=== PATIENT | female | born 1990 | race African-American/Black ===

== ENCOUNTER 2017-08-14 21:49 | Inpatient (IN) | payer OTHER, MEDICAID ==
[~2017-08-14 21:49] MED LIST: GLYCOPYRROLATE 1 MG/5 ML SYRINGE ONE; NEOSTIGMINE METHYLSULFATE 10 MG/10 ML VIAL ONE; ROCURONIUM BROMIDE INJ 50 MG/5 ML VIAL IV ONE; SUCCINYLCHOLINE CHLORIDE INJ 200 MG/10 ML VIAL ONE
[2017-08-14] MEDS ORDERED: METOCLOPRAMIDE HCL INJ/PF 10 MG/2 ML SDV IV ONE (22:22)
[2017-08-14] MEDS ORDERED: NORMAL SALINE 1000 ML 1,000 ML IV ONE ×2 (22:22→23:10)
[2017-08-14] MEDS ORDERED: FENTANYL CITRATE INJ/PF 100 MCG/2 ML AMPUL IV ONE (22:23)
--- NOTE | 2017-08-14 22:24 | ER Document Report ---
ED GI/ <ADDIE CORTEZ - Last Filed: 08/14/17 23:40> - General TRAVEL OUTSIDE OF THE [place] IN LAST 30 DAYS: No <JESSI GRESHAM - Last Filed: 08/15/17 05:04> - General Chief Complaint: Abdominal Pain Stated Complaint: STOMACH PAIN Time Seen by Provider: 08/14/17 22:15 Notes: Patient is a 27-year-old female comes emergency department for chief complaint of sharp mid to lower left abdominal pain that goes to her back, symptoms started suddenly prior to arrival, she vomited several times after the pain started. She denies fever or chills, had a normal bowel movement earlier tonight, denies history of the same. Denies history of kidney stones or ovarian cyst. Denies vaginal bleeding or discharge. Takes no medications, has had appendectomy and , denies any other medical history. On depo, had a negative test before it was started at the end of June. She states she spent the day out at the pool. (JESSI GRESHAM) - Related Data Allergies/Adverse Reactions: No Known Allergies Allergy (Unverified 08/14/17 21:56) Past Medical History - General Information source: Patient - Social History Smoking Status: Never Smoker Frequency of alcohol use: None Drug Abuse: None Lives with: Spouse/Significant other Family History: Reviewed & Not Pertinent Past Surgical History: Reports: Hx Appendectomy, Hx Section - Immunizations Hx Diphtheria, Pertussis, Tetanus Vaccination: Yes <JESSI GRESHAM - Last Filed: 08/15/17 05:04> Review of Systems - Review of Systems Constitutional: No symptoms reported EENT: No symptoms reported Cardiovascular: No symptoms reported Respiratory: No symptoms reported Gastrointestinal: See HPI Genitourinary: No symptoms reported Female Genitourinary: No symptoms reported Musculoskeletal: No symptoms reported Skin: No symptoms reported Hematologic/Lymphatic: No symptoms reported Neurological/Psychological: No symptoms reported <JESSI GRESHAM - Last Filed: 08/15/17 05:04> Physical Exam <ADDIE CORTEZ - Last Filed: 08/14/17 23:40> <JESSI GRESHAM - Last Filed: 08/15/17 05:04> - Vital signs Vitals: Temp Pulse Resp BP Pulse Ox 98.6 F 82 22 H 97/57 L 100 08/14/17 22:01 08/14/17 22:01 08/14/17 22:01 08/14/17 22:01 08/14/17 22:01 - Notes Notes: GENERAL: Alert, patient appears to be in pain, mild distress, answers questions appropriately HEAD: Normocephalic, atraumatic. EYES: Pupils equal, round, and reactive to light. Extraocular movements intact. ENT: Oral mucosa moist, tongue midline. [Nares patent, no nasal septal hematoma , TM's intact.] NECK: Full range of motion. Supple. Trachea midline. LUNGS: Clear to auscultation bilaterally, no wheezes, rales, or rhonchi. No respiratory distress. HEART: Regular rate and rhythm. No murmur ABDOMEN: difficult to evaluate patient's abdomen, generalized tenderness but there is some guarding in the left lower abdomen/pelvis EXTREMITIES: Moves all 4 extremities spontaneously. No edema, normal radial and dorsalis pedis pulses bilaterally. No cyanosis. BACK: no cervical, thoracic, lumbar midline tenderness. No saddle anesthesia, normal distal neurovascular exam. NEUROLOGICAL: Alert and oriented x3. Normal speech. [cranial nerves II through XII grossly intact]. PSYCH: very anxious SKIN: Warm, dry, normal turgor. No rashes or lesions noted. (JESSI GRESHAM) Course - Laboratory Result Diagrams: 08/14/17 22:25 08/14/17 22:25 <ADDIE CORTEZ - Last Filed: 08/14/17 23:40> - Laboratory Result Diagrams: 08/14/17 22:25 08/14/17 22:25 <JESSI GRESHAM - Last Filed: 08/15/17 05:04> - Re-evaluation Re-evalutation: 08/14/17 23:40 Jessi Gresham, physician marketing assistant, has been come see the patient because she has severe abdominal pain and had a positive FAST exam. Patient also just suddenly started, little hypotensive. Recheck the patient's blood pressure to start to come back up and is now 110/73 but she has had 2 consecutive blood pressures with systolically in the 80s. I did do a quick bedside FAST exam and she appears to have a small amount of free fluid in Morison's pouch on the right side. She does have a lot of pain over her abdomen seems uncomfortable. She does have a positive test was just came back. I have immediately called Dr. Leung, OB doctor, who immediately came down to evaluate the patient. He requested we have ultrasound do a quick bedside transvaginal ultrasound to confirm ectopic . (ADDIE CORTEZ) Patient fluttering her eyelids, states she is in a lot of pain, slightly uncooperative but she does seem to be very uncomfortable. Blood pressure is borderline, no tachycardia, giving IV fluids, pain medication, workup pending. CBC unremarkable, chemistry unremarkable, test is positive. Concern for ectopic with rupture. Immediately asked Dr. Cortez to perform a FAST exam at bedside. Appears to show a small amount of free fluid in Morison' s pouch. Blood pressure dropped into the 80s systolic but this responded immediately to IV fluids. Will contact PROBATION WORKER immediately. Placing second IV, giving additional IV fluids, performing type and screen. Patient has not eaten since this morning. 08/14/17 23:[address] Leung. He came and evaluated the patient at bedside. He states he believes this is an ectopic with rupture, would like to confirm this with transvaginal ultrasound because patient is very stable at this time, requests 2 units of transfusion blood products and OR preparation. I called and asked ultrasound to perform bedside transvaginal exam. Patient will be moved closer to the nursing station. Patient is ready to be taken to the OR. Dr. Avila called and spoke with me, confirms that this appears to be a ruptured ectopic , questionable intrauterine as well. HCG is elevated in the thousands. I called Dr. Leung to confirm that he had seen these results. He is ready for patient in the OR. Patient will be taken there now. (JESSI GRESHAM) - Vital Signs Vital signs: Temp Pulse Resp BP Pulse Ox 97.1 F 53 L 20 99/50 L 98 08/15/17 03:48 08/15/17 03:48 08/15/17 03:48 08/15/17 03:48 08/15/17 03:48 - Laboratory Laboratory results interpreted by me: 08/14/17 08/14/17 08/14/17 22:25 22:25 22:25 Sodium 146.6 H Chloride 112 H Glucose 134 H Serum HCG, Qual POSITIVE H Beta HCG, Quant 9566.80 H Crossmatch 08/14/17 23:20 Sodium Chloride Glucose Serum HCG, Qual Beta HCG, Quant Crossmatch See Detail Critical Care Note <ADDIE CORTEZ - Last Filed: 08/14/17 23:40> - Critical Care Note Total time excluding time spent on procedures (mins): 35 - Ruptured ectopic <JESSI GRESHAM - Last Filed: 08/15/17 05:04> - Critical Care Note Comments: Please allow 35 minutes of critical care time for evaluation and treatment of patient with ruptured ectopic , multiple re-evaluations, hypotension requiring IV fluid resuscitation, consultation with PROBATION WORKER, discussion with radiologist, admission to the operating room. (JESSI GRESHAM) Discharge <ADDIE CORTEZ - Last Filed: 08/14/17 23:40> - Discharge Admitting Provider: [facility] Admitted: OR <JESSI GRESHAM - Last Filed: 08/15/17 05:04> - Discharge Clinical Impression: Ruptured ectopic , Left lower quadrant pain Hypotension Qualifiers: Hypotension type: unspecified hypotension type Qualified Code(s): I95.9 - Hypotension, unspecified Vomiting Qualifiers: Vomiting type: unspecified Vomiting Intractability: non-intractable Nausea presence: with nausea Qualified Code(s): R11.2 - Nausea with vomiting, unspecified Condition: Critical Disposition: ADMITTED INPATIENT
[2017-08-14 22:39] LABS: ABSOLUTE BASOPHILS # (AUTO) 0.1 10^3/uL (0.0-0.2); ABSOLUTE EOSINOPHILS # (AUTO) 0.1 10^3/uL (0.0-0.6); ABSOLUTE LYMPHOCYTES (AUTO) 3.1 10^3/uL (0.5-4.7); ABSOLUTE MONOCYTES (AUTO) 0.4 10^3/uL (0.1-1.4); ABSOLUTE NEUT (AUTO) 3.6 10^3/uL (1.7-8.2); BASOPHILS % (AUTO) 0.7 % (0-2); EOSINOPHILS % (AUTO) 1.3 % (0-6); HEMATOCRIT 39.1 % (36.0-47.0); LYMPHOCYTES % (AUTO) 42.8 % (13-45); MEAN CORPUSCULAR HEMOGLOBIN 30.2 pg (27.0-33.4); MEAN CORPUSCULAR HGB CONC 33.3 g/dL (32.0-36.0); MEAN CORPUSCULAR VOLUME 91 fl (80-97); MONOCYTES % (AUTO) 5.8 % (3-13); PLATELET COUNT 267 10^3/uL (150-450); RED BLOOD COUNT 4.31 10^6/uL (3.72-5.28); RED CELL DISTRIBUTION WIDTH 13.6 % (11.5-14.0); SEGMENTED NEUTROPHILS % (AUTO) 49.4 % (42-78); TOTAL CELLS COUNTED % (AUTO) 100 %; WHITE BLOOD COUNT 7.3 10^3/uL (4.0-10.5)
[2017-08-14 23:01] LABS: ALANINE AMINOTRANSFERASE 17 U/L (9-52); ALBUMIN 4.1 g/dL (3.5-5.0); ALKALINE PHOSPHATASE 86 U/L (38-126); ANION GAP 11 (5-19); ASPARTATE AMINO TRANSFERASE 22 U/L (14-36); BILIRUBIN,DIRECT 0.3 mg/dL (0.0-0.4); BILIRUBIN,TOTAL 0.5 mg/dL (0.2-1.3); BLOOD UREA NITROGEN 12 mg/dL (7-20); CALCIUM 9.1 mg/dL (8.4-10.2); CARBON DIOXIDE 24 mmol/L (22-30); CHLORIDE 112 mmol/L (98-107); GLUCOSE 134 mg/dL (75-110); LIPASE 79.8 U/L (23-300); SODIUM 146.6 mmol/L (137-145); TOTAL PROTEIN 7.4 g/dL (6.3-8.2)
[2017-08-15] MEDS ORDERED: PROMETHAZINE HCL INJ 25 MG/1 ML VIAL IV PRN ×2 (00:21→01:07)
[2017-08-15] MEDS ORDERED: RINGERS SOLUTION,LACTATED 1,000 ML IV PRN (00:21)
[2017-08-15] MEDS ORDERED: ACETAMINOPHEN 1,000 MG/100 ML RTUPB IV PRN (00:21)
[2017-08-15] MEDS ORDERED: ACETAMINOPHEN 325 MG TABLET PO PRN (00:21)
[2017-08-15] MEDS ORDERED: OXYCODONE-ACETAMINOPHEN 5-325 MG TABLET PO PRN ×2 (00:21)
[2017-08-15] MEDS ORDERED: HYDROMORPHONE HCL INJ/PF 2 MG/ML AMPULE IV PRN (00:21)
[2017-08-15] MEDS ORDERED: SIMETHICONE 80 MG TAB.CHEW PO PRN (00:21)
--- NOTE | 2017-08-15 00:26 | RADIOLOGY REPORT (SQ) ---
EXAM DESCRIPTION: US TRANSVAGINAL COMPLETED DATE/TME: 08/14/2017 23:21 CLINICAL HISTORY: 27 years, Female, severe LLQ pain, +HCG, ?ruptured ectopic COMPARISON: None. TECHNIQUE: Transvaginal LIMITATIONS: None. FINDINGS: No definite intrauterine . Indeterminate cystic fluid collection within the endometrial cavity measures 1.5 x 1.2 cm; no yolk sac, no pole, no cardiac activity. If this sac were to represent a viable gestational sac, it would correspond with a gestational age of six weeks and two days. Moderate heterogeneous material in the anterior and posterior cul-de-sac and right ovarian fossa; differential diagnosis includes hemorrhagic clot. IMPRESSION: Possible ruptured ectopic gestation. Immediate Surgical referral advised.
[2017-08-15] MEDS ORDERED: FENTANYL CITRATE INJ/PF 250 MCG/5 ML AMPULE ONE (00:38)
[2017-08-15] MEDS ORDERED: MIDAZOLAM 2 MG/2 ML INJ ONE (00:38)
[2017-08-15] MEDS ORDERED: PROPOFOL INJ 200 MG/20 ML VIAL IV ONE (00:39)
[2017-08-15] MEDS ORDERED: ACETAMINOPHEN 1,000 MG/100 ML RTUPB IV ONE (00:39)
[2017-08-15] MEDS ORDERED: CEFAZOLIN INJ 1 GM VIAL ONE (00:55)
[2017-08-15] MEDS ORDERED: FENTANYL CITRATE INJ/PF 100 MCG/2 ML AMPUL IV PRN ×3 (01:07)
[2017-08-15] MEDS ORDERED: MORPHINE SULFATE 10 MG/ML INJ IV PRN (01:07)
[2017-08-15] MEDS ORDERED: MEPERIDINE HCL/PF INJ 25 MG/1 ML DISP.SYRIN IV PRN (01:07)
[2017-08-15] MEDS ORDERED: DIPHENHYDRAMINE HCL 50 MG/ML VIAL IV PRN (01:07)
--- NOTE | 2017-08-15 02:01 | Operative Report ---
Operative Report DATE OF SURGERY: 08/15/17 PREOPERATIVE DIAGNOSIS: Ruptured ectopic POSTOPERATIVE DIAGNOSIS: Ruptured left ectopic right by the uterine cornu OPERATION: Minilaparotomy with left salpingectomy. Also the left cornu was oversewn to control bleeding. SURGEON: UVALDO BUSBY ANESTHESIA: GA TISSUE REMOVED OR ALTERED: Left fallopian tube COMPLICATIONS: None ESTIMATED BLOOD LOSS: 250 cc INTRAOPERATIVE FINDINGS: Ruptured left fallopian tube right at the uterine cornu. Large amount of blood clot in front and behind the uterus. Normal- appearing ovaries normal right fallopian tube small uterus PROCEDURE: Patient was taken the OR and placed in supine position. General anesthesia was induced. A Benedict was placed for drainage of the bladder. Her abdomen was prepared and draped in a sterile fashion. Incision was made on her old C- section scar and carried down the level of fascia which was nicked in midline. The fascial incision was extended bilaterally using curved [place] scissors. The fascia was off the rectus muscles using sharp and blunt dissection. The rectus muscles were midline and peritoneum was entered without incident. Peritoneal incision was extended superiorly and inferiorly taking care not to injure bladder. The clot was quickly evacuated out of the posterior and anterior cul-de-sac allowing visualization of the fallopian tubes. The right tube and ovary were inspected and found to be intact. The left tube was found to be bleeding briskly just next to the uterine cornu. The the ovary appeared normal. The area that was bleeding was grasped with a Sheri clamp and elevated which controlled the bleeding. Using the LigaSure device the ureter the fallopian tube was removed with successive bites. The fallopian tube was ruptured at the uterine cornu which made salvaging the left fallopian tube problematic. Some bleeding still at the uterine cornu was made hemostatic by oversewing the area with 2 oh chromics in interrupted fashion. The remainder of the clot in the abdomen was evacuated. The pelvis was irrigated and suctioned free of fluid. The rectus muscles were brought together in the midline with 2 interrupted sutures of 2-0 chromic. The sub- fascial tissues were inspected for bleeding. The fascia was then closed with a running 0 Vicryl in 2 segments. The wound was irrigated. Radha's layer was brought together with 2-0 plain gut stitch and skin closed with a running subcuticular 4-0 undyed Vicryl stitch. She was extubated in the OR and taken recovery room in stable condition.
[2017-08-15] MEDS ORDERED: ONDANSETRON 4 MG TAB.RAPDIS ONE (02:27)
[2017-08-15] MEDS: FENTANYL CITRATE INJ/PF 100 MCG/2 ML AMPUL ONE ×2 (02:41→02:50)
[2017-08-15] MEDS ORDERED: CEFAZOLIN 1 GM/D5W RTU 1 GM/50 ML RTUPB IV SCH ×2 (03:00→06:00)
[2017-08-15] MEDS: NORMAL SALINE 250 ML IV PRN ×8 (06:31→06:35)
[2017-08-15] MEDS: KETOROLAC TROMETHAMINE INJ/PF 30 MG/1 ML SDV IV SCH ×3 (06:33→17:22)
[2017-08-15] MEDS: IBUPROFEN 800 MG TABLET PO SCH ×4 (07:41→23:12)
[2017-08-15] MEDS: DOCUSATE SODIUM 100 MG CAPSULE PO SCH ×2 (09:49→17:26)
[2017-08-16] MEDS: IBUPROFEN 800 MG TABLET PO SCH (05:46)
[2017-08-16 07:32] LABS: HEMATOCRIT 21.7 % (36.0-47.0); MEAN CORPUSCULAR HEMOGLOBIN 30.1 pg (27.0-33.4); MEAN CORPUSCULAR HGB CONC 33.5 g/dL (32.0-36.0); MEAN CORPUSCULAR VOLUME 90 fl (80-97); PLATELET COUNT 146 10^3/uL (150-450); RED BLOOD COUNT 2.42 10^6/uL (3.72-5.28); RED CELL DISTRIBUTION WIDTH 13.4 % (11.5-14.0); WHITE BLOOD COUNT 8.7 10^3/uL (4.0-10.5)
[2017-08-16 07:35] LABS: HEMOGLOBIN 7.3 g/dL (12.0-15.5)
[2017-08-16] MEDS: DOCUSATE SODIUM 100 MG CAPSULE PO SCH (10:09)
--- NOTE | 2017-08-16 11:07 | PDOC PROGRESS REPORT ---
Subjective Progress Note for:: 08/16/17 Subjective:: + flatus, no BM, good pain control. tolerating po intake, no n/v/fevers/chills , ambulating without difficulty Reason For Visit: RUPTURED ECTOPIC , LEFT LOWER QUADRANT Physical Exam - Physical Exam Vital Signs: Temp Pulse Resp BP Pulse Ox 99.0 F 88 20 110/56 L 98 08/16/17 07:27 08/16/17 07:27 08/16/17 07:27 08/16/17 07:27 08/16/17 07:27 Intake & Output 08/15/17 08/16/17 08/17/17 06:59 06:59 06:59 Intake Total 1600 1150 Output Total 1410 750 Balance 190 400 General appearance: PRESENT: no acute distress, cooperative Head exam: PRESENT: atraumatic Respiratory exam: PRESENT: clear to auscultation jonas, symmetrical, unlabored Cardiovascular exam: PRESENT: RRR, +S1, +S2 Vascular exam: PRESENT: normal capillary refill GI/Abdominal exam: PRESENT: normal bowel sounds, soft, tenderness. ABSENT: distended Rectal exam: PRESENT: deferred Extremities exam: ABSENT: calf tenderness, +1 edema Musculoskeletal exam: PRESENT: ambulatory Neurological exam: PRESENT: alert, awake, oriented to person, oriented to place , oriented to time, oriented to situation, CN II-XII grossly intact. ABSENT: motor sensory deficit Psychiatric exam: PRESENT: appropriate affect, normal mood. ABSENT: homicidal ideation, suicidal ideation Result Laboratory Results: 08/16/17 06:30 08/16/17 06:30 WBC 8.7 RBC 2.42 L Hgb 7.3 L D Hct 21.7 L MCV 90 MCH 30.1 MCHC 33.5 RDW 13.4 Plt Count 146 L Impressions: Transvaginal US 08/14/17 23:21 IMPRESSION: Possible ruptured ectopic gestation. Immediate Surgical referral advised. Status: Imported from PACS Assessment & Plan - Diagnosis (1) Ruptured ectopic Is this a current diagnosis for this admission?: Yes Plan: Rupture left ectopic at left urterine cornua. S/p Mini Lap and removal of left tube. See op report. Meets criteria for discharge (2) Acute blood loss anemia Is this a current diagnosis for this admission?: Yes Plan: EBL for surgery 250ml but considering presentation and need for mini lap and description of intraop findings suspect that total EBL for surgery was much higher. Pt is stable and doing well. TOlerating po intake, + flatus and good pain control. No n/v. Will discharge to home with iron supplementation and have pt f/u in office with Dr. Leung in 1 wks. - Time Time Spent with patient: 15-24 minutes Medications reviewed and adjusted accordingly: Yes Anticipated discharge: Home Within: within 24 hours - Inpatient Certification Based on my medical assessment, after consideration of the patient's comorbidities, presenting symptoms, or acuity I expect that the services needed warrant INPATIENT care.: No I certify that my determination is in accordance with my understanding of Medicare's requirements for reasonable and necessary INPATIENT services [42 CFR 412.3e].: No Post Hospital Care: D/C [facility] Documentation - Plan Summary Plan Summary: Meets criteria for discharge
--- NOTE | 2017-08-16 11:25 | PDOC DISCHARGE SUMMARY ---
General - Admit/Disc Date/PCP Admission Date/Primary Care Provider: 08/14/17 23:59 RAMAKRISHNA BAILON MD Discharge Date: 08/16/17 - Discharge Diagnosis (1) Ruptured ectopic Is this a current diagnosis for this admission?: Yes Summary: presented for LLQ pain and US revealed bleeding and ruptured ectopic . Pt underwent Urgent Mini Lap with left salpingectomy and evacuation of blood clot and ectopic (2) Acute blood loss anemia Is this a current diagnosis for this admission?: Yes Summary: suspect EBL for surgery 250ml is underestimate since need for Mini lap and intraop description with clot in front and behind uterus. Will discharge home on iron - Additional Information Resuscitation Status: Full Code Prescriptions: Oxycodone HCl/Acetaminophen [Percocet 5-325 mg Tablet] 2 tab PO Q4HP PRN 7 Days #28 tablet PRN Reason: For Breakthrough Pain Docusate Sodium [Colace 100 mg Capsule] 100 mg PO BID 30 Days #60 capsule Ferrous Sulfate 325 mg PO BID 30 Days #60 tablet Ibuprofen [Motrin 800 mg Tablet] 800 mg PO Q8H 30 Days #90 tablet Simethicone [Mylicon 80 mg Chewable Tablet] 80 mg PO QIDP PRN 15 Days #60 tab.chew PRN Reason: For Gas (Flatulence) Home Medications: Acetaminophen [Tylenol 325 mg Tablet] 650 mg PO Q4HP PRN tablet 08/16/17 Docusate Sodium [Colace 100 mg Capsule] 100 mg PO BID 30 Days #60 capsule Ferrous Sulfate 325 mg PO BID 30 Days #60 tablet 08/16/17 Ibuprofen [Motrin 800 mg Tablet] 800 mg PO Q8H 30 Days #90 tablet 08/16/17 Oxycodone HCl/Acetaminophen [Percocet 5-325 mg Tablet] 2 tab PO Q4HP PRN 7 Days #28 tablet 08/16/17 Simethicone [Mylicon 80 mg Chewable Tablet] 80 mg PO QIDP PRN 15 Days #60 tab.chew 08/16/17 History of Present Illness Patient complains of: LLQ pain History of Present Illness: LUCA BURCH is a 27 year old female presented to ER with LLQ pain and noted to have high BHCG and rupture Left Ectopic. Pt consented by Dr. Leung and to OR for min lap due to ruptured ectopic . Hospital Course Hospital Course: 27 year old female presented to ER with LLQ pain and noted to have high BHCG and rupture Left Ectopic. Pt consented by Dr. Leung and to OR for min lap due to ruptured ectopic . She underwent Mini lap due to ruptured left ectopic preg at cornua and need for over sew of left cornu. Suspect total blood loss for surgery is higher based on Decrease in hb/Hct postop. She is now doing well and has tolerated advance of care without difficulty. Op site in place with good hemostasis. pt ambulating well. Will discharge home on iron. Physical Exam - Physical Exam Vital Signs: Temp Pulse Resp BP Pulse Ox 99.0 F 88 20 110/56 L 98 08/16/17 07:27 08/16/17 07:27 08/16/17 07:27 08/16/17 07:27 08/16/17 07:27 Intake & Output 08/15/17 08/16/17 08/17/17 06:59 06:59 06:59 Intake Total 1600 1150 Output Total 1410 750 Balance 190 400 General appearance: PRESENT: no acute distress, well-developed, well-nourished Head exam: PRESENT: atraumatic, normocephalic Respiratory exam: PRESENT: clear to auscultation jonas, symmetrical, unlabored Cardiovascular exam: PRESENT: RRR. ABSENT: diastolic murmur, rubs, systolic murmur Vascular exam: PRESENT: normal capillary refill GI/Abdominal exam: PRESENT: normal bowel sounds, soft. ABSENT: distended, guarding, mass, organolmegaly, rebound, tenderness Rectal exam: PRESENT: deferred Extremities exam: PRESENT: full ROM. ABSENT: calf tenderness, clubbing, pedal edema Musculoskeletal exam: PRESENT: ambulatory Neurological exam: PRESENT: alert, awake, oriented to person, oriented to place , oriented to time, oriented to situation, CN II-XII grossly intact. ABSENT: motor sensory deficit Psychiatric exam: PRESENT: appropriate affect, normal mood. ABSENT: homicidal ideation, suicidal ideation Result Laboratory Results: 08/16/17 06:30 08/16/17 06:30 WBC 8.7 RBC 2.42 L Hgb 7.3 L D Hct 21.7 L MCV 90 MCH 30.1 MCHC 33.5 RDW 13.4 Plt Count 146 L Impressions: Transvaginal US 08/14/17 23:21 IMPRESSION: Possible ruptured ectopic gestation. Immediate Surgical referral advised. Status: Imported from PACS Plan Discharge Plan: Discharge to home. F/u in office in [address] Leung Time Spent: Less than 30 Minutes
[2017-08-16 12:09] VITALS: BP 114/65
== END 2017-08-16 12:57 | disposition home or self-care (01) | DRG 777 ==
LOC: ER 21:49 → EH 23:59 → 2S 08-15 03:30
PROVIDERS: ADMIT Obstetrics & Gynecology; ATTEND Obstetrics & Gynecology
PROC: 0UT64ZZ Resection of Left Fallopian Tube, Percutaneous Endoscopic Approach (ICD-10-PCS; principal; 2017-08-13)
PROC: 10T24ZZ Resection of Products of Conception, Ectopic, Percutaneous Endoscopic Approach (ICD-10-PCS; 2017-08-13)
DX: O00.102 Left tubal pregnancy without intrauterine pregnancy (principal); D62 Acute posthemorrhagic anemia; Z90.49 Acquired absence of other specified parts of digestive tract; Z98.891 History of uterine scar from previous surgery
CPT/HCPCS: 36415; 76817; 80053; 83690; 840; 84702; 84703; 85025; 85027; 86850; 86900; 86901; 86920; 88304; 88305; 93976; 94799; 96361; 96374; 96375; 99291; J0131; J0330; J0690; J1170; J1885; J2250; J2550; J2704; J2765; J3010; J3490; J7030; S0119

== ENCOUNTER 2019-10-27 16:28 | Emergency (ER) | payer OTHER, MEDICAID ==
[2019-10-27] MEDS ORDERED: NORMAL SALINE 1000 ML 1,000 ML IV ONE (17:21)
[2019-10-27] MEDS ORDERED: ONDANSETRON HCL INJ/PF 4 MG/2 ML SDV IV ONE (17:21)
[2019-10-27 18:30] LABS: ABSOLUTE BASOPHILS # (AUTO) 0.1 10^3/uL (0.0-0.2); ABSOLUTE EOSINOPHILS # (AUTO) 0.1 10^3/uL (0.0-0.6); ABSOLUTE LYMPHOCYTES (AUTO) 2.9 10^3/uL (0.5-4.7); ABSOLUTE MONOCYTES (AUTO) 0.4 10^3/uL (0.1-1.4); ABSOLUTE NEUT (AUTO) 3.3 10^3/uL (1.7-8.2); BASOPHILS % (AUTO) 0.8 % (0-2); EOSINOPHILS % (AUTO) 1.7 % (0-6); HEMATOCRIT 39.5 % (36.0-47.0); HEMOGLOBIN 13.5 g/dL (12.0-15.5); LYMPHOCYTES % (AUTO) 42.9 % (13-45); MEAN CORPUSCULAR HEMOGLOBIN 31.1 pg (27.0-33.4); MEAN CORPUSCULAR HGB CONC 34.3 g/dL (32.0-36.0); MEAN CORPUSCULAR VOLUME 91 fl (80-97); MONOCYTES % (AUTO) 6.4 % (3-13); PLATELET COUNT 253 10^3/uL (150-450); RED BLOOD COUNT 4.34 10^6/uL (3.72-5.28); RED CELL DISTRIBUTION WIDTH 13.7 % (11.5-14.0); SEGMENTED NEUTROPHILS % (AUTO) 48.2 % (42-78); TOTAL CELLS COUNTED % (AUTO) 100 %; WHITE BLOOD COUNT 6.8 10^3/uL (4.0-10.5)
[2019-10-27 18:39] LABS: APPEARANCE,URINE CLOUDY; BILIRUBIN,URINE NEGATIVE (NEGATIVE); COLOR,URINE YELLOW; GLUCOSE, URINE NEGATIVE (NEGATIVE); KETONES,URINE NEGATIVE (NEGATIVE); LEUKOCYTE ESTERASE,URINE LARGE (NEGATIVE); NITRITE,URINE NEGATIVE (NEGATIVE); PROTEIN,URINE NEGATIVE (NEGATIVE); URINE SPECIFIC GRAVITY 1.021
[2019-10-27 18:52] LABS: ALBUMIN 4.3 g/dL (3.5-5.0); ALKALINE PHOSPHATASE 72 U/L (38-126); ANION GAP 7 (5-19); ASPARTATE AMINO TRANSFERASE 18 U/L (14-36); BILIRUBIN,DIRECT 0.3 mg/dL (0.0-0.4); BILIRUBIN,TOTAL 0.5 mg/dL (0.2-1.3); BLOOD UREA NITROGEN 12 mg/dL (7-20); CALCIUM 9.2 mg/dL (8.4-10.2); CARBON DIOXIDE 28 mmol/L (22-30); CHLORIDE 104 mmol/L (98-107); GLUCOSE 88 mg/dL (75-110); POTASSIUM 3.8 mmol/L (3.6-5.0); TOTAL PROTEIN 7.1 g/dL (6.3-8.2)
--- NOTE | 2019-10-27 18:59 | RADIOLOGY REPORT (SQ) ---
EXAM DESCRIPTION: CHEST SINGLE VIEW IMAGES COMPLETED DATE/TIME: 10/27/2019 6:45 pm REASON FOR STUDY: diff breathing COMPARISON: None. EXAM PARAMETERS: NUMBER OF VIEWS: One view. TECHNIQUE: Single frontal radiographic view of the chest acquired. RADIATION DOSE: NA LIMITATIONS: None. FINDINGS: LUNGS AND PLEURA: No opacities, masses or pneumothorax. No pleural effusion. MEDIASTINUM AND HILAR STRUCTURES: No masses. Contour normal. HEART AND VASCULAR STRUCTURES: Heart normal in size. Normal vasculature. BONES: No acute findings. HARDWARE: None in the chest. OTHER: No other significant finding. IMPRESSION: NO ACUTE RADIOGRAPHIC FINDING IN THE CHEST. TECHNICAL DOCUMENTATION: JOB ID: [id number] 2010 [employer]- All Rights Reserved Reading location - IP/workstation name: [email or web address]
--- NOTE | 2019-10-27 19:05 | ER Document Report ---
ED General - General Chief Complaint: Near Syncope Stated Complaint: SHORTNESS OF BREATH Time Seen by Provider: 10/27/19 16:59 Primary Care Provider: [facility] [Primary Care Provider] - Follow up as needed Mode of Arrival: Ambulatory Information source: Patient Notes: Patient states she was at work and had an episode in which she felt overheated and had difficulty breathing. Patient states at that time she felt faint. Patient complains of lower abdominal cramping with nausea and vomiting x4 episodes. Patient denies any urinary symptoms. Patient states she has missed her most recent Depo shot. Patient states that she no longer feels faint and is no longer having any difficulty breathing at this time. TRAVEL OUTSIDE OF THE [place] IN LAST 30 DAYS: No - HPI Onset: This afternoon Onset/Duration: Sudden Quality of pain: Cramping Pain Level: 2 Associated symptoms: Nausea, Vomiting, Shortness of breath - Episode. denies: Chest pain, Nonproductive cough, Productive cough, Fever Exacerbated by: Denies Relieved by: Denies Similar symptoms previously: No Recently seen / treated by doctor: No - Related Data Allergies/Adverse Reactions: No Known Allergies Allergy (Verified 10/27/19 17:57) Past Medical History - General Information source: Patient - Social History Smoking Status: Never Smoker Chew tobacco use (# tins/day): No Frequency of alcohol use: None Drug Abuse: None Occupation: Retail Family History: Reviewed & Not Pertinent Patient has homicidal ideation: No - Medical History Medical History: Negative Renal/ Medical History: Denies: Hx Peritoneal Dialysis Past Surgical History: Reports: Hx Appendectomy, Hx Section, Hx Gynecologic Surgery - Immunizations Hx Diphtheria, Pertussis, Tetanus Vaccination: Yes Review of Systems - Review of Systems Constitutional: No symptoms reported. denies: Fever EENT: No symptoms reported Cardiovascular: Lightheaded. denies: Chest pain Respiratory: Short of breath. denies: Cough Gastrointestinal: Abdominal pain, Nausea, Vomiting. denies: Diarrhea Genitourinary: No symptoms reported. denies: Dysuria, Flank pain Female Genitourinary: No symptoms reported. denies: Vaginal discharge, Vaginal bleeding Musculoskeletal: No symptoms reported. denies: Back pain Skin: No symptoms reported Hematologic/Lymphatic: No symptoms reported Neurological/Psychological: No symptoms reported Physical Exam - Vital signs Vitals: Temp Pulse Resp BP Pulse Ox 99.0 F 62 20 110/75 100 09/15/20 16:57 10/27/19 16:57 10/27/19 16:57 10/27/19 16:57 10/27/19 16:57 - Notes Notes: PHYSICAL EXAMINATION: GENERAL: Well-appearing and in no acute distress. HEAD: Atraumatic, normocephalic. EYES: sclera anicteric, conjunctiva are normal. ENT: nares patent. Moist mucous membranes. NECK: Normal range of motion, supple without lymphadenopathy LUNGS: CTAB and equal. No wheezes rales or rhonchi. HEART: Regular rate and rhythm without murmurs ABDOMEN: Soft, epigastric and lower pelvic tenderness, normal bowel sounds, no guarding. EXTREMITIES: Normal range of motion, no pitting edema. No cyanosis. BACK: No midline tenderness, no step-off or deformity. No CVA tenderness NEUROLOGICAL: Cranial nerves grossly intact. Normal speech. PSYCH: Normal mood, normal affect. SKIN: Warm, Dry, normal turgor, no rashes or lesions noted Course - Re-evaluation Re-evalutation: 10/27/19 19:38 Patient with no acute findings on chemistry or CBC at this time. Patient does have incidental UTI with lower pelvic tenderness. Patient without any tachycardia or dyspnea at this time, patient PERC negative. Chest x-ray reviewed, no concern for pneumothorax or pneumonia. Patient reports feeling better at this time. Patient nontoxic in appearance. Will treat symptomatically and advised outpatient follow-up with primary care provider for recheck. - Vital Signs Vital signs: Temp Pulse Resp BP Pulse Ox 98.1 F 76 16 118/70 100 10/27/19 19:47 10/27/19 19:47 10/27/19 19:47 10/27/19 19:47 10/27/19 19:47 - Laboratory Result Diagrams: 10/27/19 18:12 10/27/19 18:12 Laboratory results interpreted by me: 10/27/19 18:12 Urine Urobilinogen 4.0 H Ur Leukocyte Esterase LARGE H - Diagnostic Test Radiology reviewed: Reports reviewed - EKG Interpretation by Nm EKG shows normal: Sinus rhythm Rhythm: Arrthymia Additional EKG results interpreted by me: 10/27/19 19:04 Sinus arrhythmia with a rate of 69, QTc 416, no acute ischemic changes. Discharge - Discharge Clinical Impression: Nausea, Near syncope UTI (urinary tract infection) Qualifiers: Urinary tract infection type: site unspecified Hematuria presence: without hematuria Qualified Code(s): N39.0 - Urinary tract infection, site not specified Vomiting Qualifiers: Vomiting type: unspecified Vomiting Intractability: non-intractable Nausea presence: with nausea Qualified Code(s): R11.2 - Nausea with vomiting, unspecified Condition: Stable Disposition: HOME, SELF-CARE Instructions: Antinausea Medication ([facility]), Intravenous (IV) Fluids ([facility]), Near Syncopal Episode ([facility]), Urinary Anesthetic Agent ([facility]), Urinary Tract Infection ([facility]), Vomiting ([facility]) Additional Instructions: Return immediately for any new or worsening symptoms Followup with your primary care provider, call tomorrow to make a followup appointment Prescriptions: Cephalexin Monohydrate [Keflex 500 mg Capsule] 500 mg PO BID 5 Days #10 capsule Phenazopyridine HCl [Pyridium 200 mg Tablet] 200 mg PO TID #15 tablet Ondansetron [Zofran Odt 4 mg Tablet] 1 tab PO Q6H #15 tab.rapdis Forms: Return to Work Referrals: [facility] [Primary Care Provider] - Follow up as needed
[2019-10-27] MEDS ORDERED: CEPHALEXIN 500 MG CAPSULE PO ONE (19:20)
[2019-10-27 19:48] VITALS: BP 118/70
[2019-10-27 21:23] LABS: CHLAM PCR NOT DETECTED (NOT DETECT)
--- NOTE | 2019-10-28 00:53 | EKG REPORT ---
SEVERITY:- OTHERWISE NORMAL ECG - SINUS ARRHYTHMIA, RATE [id number] : Confirmed by: Jodee Bhagat 28-Oct-2019 00:52:17
== END 2019-10-27 20:03 | disposition home or self-care (01) ==
LOC: ER 16:28
DX: R55 Syncope and collapse (principal); R11.2 Nausea with vomiting, unspecified; N39.0 Urinary tract infection, site not specified; R10.30 Lower abdominal pain, unspecified; R10.816 Epigastric abdominal tenderness; R06.02 Shortness of breath; R42 Dizziness and giddiness; I49.9 Cardiac arrhythmia, unspecified; Z90.49 Acquired absence of other specified parts of digestive tract
CPT/HCPCS: 93005; 99285; 96361; 96374; 36415; 83690; 84703; 85025; 80053; 81001; 87491; 87591; 71045; 93010; J2405; J7030